=== PATIENT | female | born 1990 | race Caucasian/White ===

== ENCOUNTER 2023-02-01 17:35 | Emergency (ER) | payer MEDICAID, SELFPAY ==
[2023-02-01 17:50] VITALS: BP 131/82; PULSE 86; RESP 15; TEMP 36.4; O2SAT 100
--- NOTE | 2023-02-01 19:46 | ED_ITS ---
HPI - General Adult General Time Seen by Provider: 19:46 Date Seen: 02/01/23 Chief complaint: Unspecified Complaint, Adult Stated complaint: Feels something is stuck in throat Time Seen by Provider: 02/01/23 19:40 Source: patient and RN notes reviewed Mode of arrival: ambulatory Limitations: no limitations History of Present Illness HPI narrative: Patient is a 32-year-old female coming in with sense of irritation with swallowing. She is able to eat, can tell me that she had potatoes some meat and cucumber for lunch. And was able to swallow that fine. Nothing is getting stuck. Afterwards though she felt irritation from where she points to her throat down through the chest to the epigastric area. She feels like there is something in there. She is able to drink liquids. She notes about 2 years ago she choked on a grape and it almost has a sense of feeling like that again. When ask about heartburn she points to the center chest. Does not sound like food is getting stuck, cannot really ascertain if she is getting a regurgitant component. She denies any nausea vomiting or abdominal pain. Does not think there is any chance for . Patient does note that sometimes this comes and goes. Related Data Previous Rx's Medication Instructions Recorded omeprazole 40 mg capsule,delayed 40 mg PO DAILY #14 caps 02/01/23 release Allergies Allergy/AdvReac Type Severity Reaction Status Date / Time No Known Drug Allergies Allergy Verified 02/01/23 17:49 Review of Systems Status of ROS: Reports: 6 or more systems reviewed and unremarkable except as noted in History and below Exam Const: Vital Signs, click to edit/add: Vital Signs - 24 hr 02/01/23 17:50 Temperature 97.6 F Pulse Rate [Pulse Oximeter] 86 Respiratory Rate 15 Blood Pressure [Ri ght Upper Arm] 131/82 Pulse Oximetry 100 Oxygen Delivery Me thod Room Air Documenting provider has reviewed patient's vital signs: yes Common normals: no apparent distress, oriented x3, no limitations, healthy appearing and alert General appearance: cooperative, comfortable, well kempt and well developed HENMT: Common normals: normocephalic, head/scalp atraumatic, moist oral mucous membranes, oropharynx normal, dentition normal and gingiva normal Head and scalp: normocephalic and atraumatic Eye: Common normals: PERRL, EOMs intact bilaterally, conjunctivae normal and no scleral icterus Conjunctiva: conjunctiva(e) normal Pupil: PERRL Neck & C-Spine: Common normals: full ROM, no lymphadenopathy and supple Resp: Common normals: normal respiratory effort, no retractions, no use of accessory muscles and clear to auscultation bilaterally Auscultation: clear to auscultation bilaterally Cardio: Common normals: regular rate, regular rhythm, S1 normal heart sound, S2 normal heart sound, no gallops, no clicks and no murmurs Rate: regular rate Rhythm: regular rhythm Heart sounds: S1 normal and S2 normal GI: Common normals: Normal to inspection, nondistended, normoactive bowel sounds present, soft to palpation and non-tender Palpation: soft Neuro: Common normals: oriented x3 Sensorium/orientation: alert Psych: Appearance: well kempt Course Course Hospital Course: Have reviewed with patient that I am not going to be able to work [facility]. She could be experiencing some irritation within the esophagus but the fact that she is able to drink and eat is reassuring. It does sound like this could be possible globus sensation where she is feeling it more in the upper throat. Again, reassured her the fact that she can eat and drink without foods getting stuck is reassuring. I would recommend doing a proton pump inhibitor, following up in clinic to get established with care, have a referral provided for an EGD. My rationale for having her get established and a clinic is that she can have a full evaluation and history taking. Vital Signs Vital signs: Initial Vital Signs Temperature 97.6 F 02/01/23 17:50 Temperature Source Temporal Artery Scan 02/01/23 17:50 Pulse Rate 86 02/01/23 17:50 Pulse Rhythm Regular 02/01/23 17:50 Respiratory Rate 15 02/01/23 17:50 Blood Pressure 131/82 02/01/23 17:50 Blood Pressure Mean 98 02/01/23 17:50 Pulse Oximetry 100 02/01/23 17:50 Oxygen Delivery Method Room Air 02/01/23 17:50 Vital Signs Temperature 97.6 F 02/01/23 17:50 Pulse Rate 86 02/01/23 17:50 Respiratory Rate 15 02/01/23 17:50 Blood Pressure 131/82 04/24/23 17:50 Pulse Oximetry 100 02/01/23 17:50 Oxygen Delivery Method Room Air 02/01/23 17:50 Temperature 97.6 F 02/01/23 17:50 Pulse Rate 86 02/01/23 17:50 Respiratory Rate 15 02/01/23 17:50 Blood Pressure 131/82 02/01/23 17:50 Pulse Oximetry 100 02/01/23 17:50 Oxygen Delivery Method Room Air 02/01/23 17:50 Critical Care Time Critical Care Time Critical Care Time: No Discharge Plan Discharge Clinical Impression: Globus sensation Patient Disposition: Home, Self-Care Condition: Stable Instructions: Dysphagia (ED) Additional Instructions: I do think that this could be possibly disorder within the esophagus, thus do recommend getting scheduled for an EGD. Your going to need to get established in a clinic with a primary care provider so that they can get this referral done for you. In the meantime, will write for some omeprazole to see if that does help. Chew your food well, eat small bites. Try to eat foods that maybe do not precipitate you to have the sense of any difficulty swallowing or pain after swallowing. If you ever get food that gets stuck when you are swallowing, do recommend being evaluated. Activity Level: Activity as Tolerated Prescriptions: New omeprazole 40 mg capsule,delayed release(DR/EC) 40 mg PO DAILY Qty: 14 0RF Stand Alone Forms: [facility] [place] Info Instructions
[2023-02-01 19:54] VITALS: RESP 18; O2SAT 99
[2023-02-01 20:18] VITALS: BP 125/78; PULSE 79; RESP 16; TEMP 36.8; O2SAT 100
[2023-02-01 20:19] VITALS: BP 125/78; PULSE 79; RESP 16; TEMP 36.8
== END 2023-02-01 20:42 | disposition home or self-care (01) ==
PROVIDERS: Emergency Provider Family Medicine
DX: R09.89 Other specified symptoms and signs involving the circulatory and respiratory systems (principal)
CPT/HCPCS: 99282; 99283

== ENCOUNTER 2023-02-04 14:10 | Outpatient (CLI) | payer MEDICAID, SELFPAY | END 2023-02-04 14:11 | disposition home or self-care (01) | PROVIDERS: Visit Provider Emergency Medicine | DX: R07.0 Pain in throat (principal) | CPT/HCPCS: 84439; 84443; 84481; 86140 ==